=== PATIENT | female | born 1990 | race American Indian/Alaskan Native ===

== ENCOUNTER 2018-04-19 09:42 | Emergency (ER) | payer MEDICAID ==
[2018-04-19] MEDS ORDERED: DELTASONE PO ONE (10:55)
--- NOTE | 2018-04-19 10:55 | Emergency Department Report ---
Minor Respiratory - HPI Chief Complaint: Neuro Symptoms/Deficit Stated Complaint: facial droop Time Seen by Provider: 04/19/18 10:39 Duration: 4 Days Pain Location: Other (face) Severity: moderate Minor Respiratory: Yes Able to Tolerate Fluids, No Rhinorrhea, No Sore Throat, No Ear Pain, No Cough, No Sick Contacts, No Hemoptysis, No Chest Pain, No Shortness of Breath, No Fever ED Review of Systems ROS: Stated complaint: NUERAL SYMPTONS Other details as noted in HPI Comment: All other systems reviewed and negative Constitutional: denies: chills, fever Eyes: denies: eye pain, eye discharge, vision change ENT: denies: ear pain, throat pain Respiratory: denies: cough, orthopnea Cardiovascular: denies: palpitations Endocrine: denies: excessive sweating, intolerance to heat Gastrointestinal: denies: nausea, vomiting Genitourinary: denies: urgency Musculoskeletal: other (face droop on l, no fever. no urti, no lesions, no hx cold sores). denies: back pain, joint swelling, arthralgia Skin: denies: rash, lesions Neurological: denies: headache, weakness Psychiatric: denies: anxiety, depression Hematological/Lymphatic: denies: easy bleeding ED Past Medical Hx - Past Medical History Hx Hypertension: No Hx Congestive Heart Failure: No Hx Diabetes: No Hx Deep Vein Thrombosis: No Hx Renal Disease: No Hx Sickle Cell Disease: No Hx Seizures: No Hx Asthma: No Hx COPD: No Hx HIV: No Additional medical history: MS - Surgical History Past Surgical History?: No - Family History Family history: no significant - Social History Smoking Status: Never Smoker Substance Use Type: None - Medications Home Medications: Home Medications Medication Instructions Recorded Confirmed Last Taken Type Polyvinyl Alcohol [Artificial 15 ml OP Q2H #1 drops 04/19/18 Unknown Rx Tears] predniSONE [Deltasone] 50 mg PO QDAY #10 tab 04/19/18 Unknown Rx Minor Respiratory Exam - Exam General: Vital signs noted. No distress. Alert and acting appropriately. HEENT: Yes Moist Mucous Membranes, No Pharyngeal Erythema, No Pharyngeal Exudates, No Rhinorrhea, No Conjuctival Injection, No Frontal Tenderness, No Maxillary Tenderness Ear: Neither TM Bulge, Neither TM Erythema, Neither EAC Pain, Neither EAC Discharge Neck: Yes Supple, No Adenopathy Lungs: Yes Good Air Exchange, No Wheezes, No Ronchi, No Stridor, No Cough, No Labored Respirations, No Retractions, No Use of Accessory Muscles, No Other Abnormal Lung Sounds Heart: Yes Regular, No Murmur Abdomen: Yes Normal Bowel Sounds, No Tenderness, No Peritoneal Signs Skin: No Rash, No Edema Neurologic: Alert and oriented, patient is ambulatory. Equal hand grasp. Equal pedal pushes EOMs are intact pupils equal round reactive to light Patient is unable to close her left eye and has associated left sided mouth drooping. Patient has a history of multiple sclerosis. This is not her typical presentation. She follows with neurology at [facility]. She's had no fever no recent upper respiratory tract infection, and she does not have a history of herpes. 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 Just today her mother became concerned and thought she should come in to be seen. She did call her neurologist Socorro who told her to come to the ER because they could not work her in before her April appointment. Musculoskeletal: Unremarkable. ED Course Vital Signs 04/19/18 09:46 Temperature 98 F Pulse Rate 87 Respiratory 18 Rate Blood Pressure 129/87 O2 Sat by Pulse 97 Oximetry ED Medical Decision Making - Medical Decision Making No focal neuro deficit equal hand grasps and pedal pushes. No pronator drift. EOMs intact. Pupils equal round react to light. Patient ambulatory. She is able to take by mouth fluids. She is nontoxic and nonfebrile and non-ill- appearing. Patient was discharged home with steroids, artificial tears for her eyes and encouraged to follow up with neuro as soon as she can't be sure that she does not end up having an MS flare. - Differential Diagnosis bells palsy w underlying MS Critical care attestation.: If time is entered above; I have spent that time in minutes in the direct care of this critically ill patient, excluding procedure time. ED Disposition Clinical Impression: Zelaya's palsy, Multiple sclerosis Disposition: DC-01 TO HOME OR SELFCARE Is pt being admited?: No Does the pt Need Aspirin: No Condition: Stable Instructions: Zelaya Palsy (ED) Additional Instructions: FOLLOW UP WITH YOUR NEURO MD FROY- THIS WEEK MEDS ORDERED TODAY HYDRATE WELL ACTIVITY TOLERATED DIET TOLERATED Prescriptions: Polyvinyl Alcohol [Artificial Tears] 15 ml OP Q2H #1 drops predniSONE [Deltasone] 50 mg PO QDAY #10 tab Referrals: PRIMARY CARE, [Primary Care Provider] - 3-5 Days Time of Disposition: 10:54
[2018-04-19 12:05] VITALS: BP 123/81
== END 2018-04-19 11:59 | disposition home or self-care (01) ==
LOC: ED 09:42
DX: G51.0 Bell's palsy (principal); G35 Multiple sclerosis
CPT/HCPCS: 99282; J7512

== ENCOUNTER 2018-08-20 15:02 | Emergency (ER) | payer MEDICAID ==
[2018-08-20 15:08] VITALS: BP 112/77
--- NOTE | 2018-08-20 15:14 | Emergency Department Report ---
Chief Complaint: Back Pain/Injury Stated Complaint: BACK PAIN Time Seen by Provider: 08/20/18 15:11 - HPI History of Present Illness: PAIN L SIDE THAT MOVES AT NIGHT NO N/V/D/FEVER/SOB/CP PT WALKS WITH CANE SHE REPORTS MANY FALLS BUT STATES NO FALL THAT SHE HAS HURT HER BACK DURING ODD AFFECT CIG/ETOH/DRUGS DENIES MS - BOWEN MRI THIS PAST WEEK PMH MS LMP 07/25 RX TEFADERA PSH NONE MSE COMPLETED - Exam Vital Signs: Vital Signs 08/20/18 15:07 Temperature 97.7 F Pulse Rate 96 H Respiratory 18 Rate Blood Pressure 112/77 [Right] O2 Sat by Pulse 98 Oximetry MSE screening note: Focused history and physical exam performed. Due to findings the following was ordered: ED Disposition for MSE Condition: Stable
[2018-08-20 15:44] LABS: HCG Qualitative,Urine Negative (Negative)
[2018-08-20] MEDS ORDERED: TORADOL IM ONE (15:44)
[2018-08-20 15:54] LABS: Bilirubin,Urine NEG (Negative); Blood,Urine SM (Negative); Color,Urine Amber (Yellow); Protein,Urine <15 mg/dL mg/dL (Negative); Urobilinogen,Urine < 2.0 mg/dL (<2.0)
[2018-08-20 15:55] LABS: RBC,Urine < 1.0 /HPF (0.0-6.0); WBC,Urine < 1.0 /HPF (0.0-6.0)
--- NOTE | 2018-08-20 16:05 | Emergency Department Report ---
ED Back Pain/Injury HPI - General Chief Complaint: Back Pain/Injury Stated Complaint: BACK PAIN Time Seen by Provider: 08/20/18 15:11 Source: patient Limitations: No Limitations - History of Present Illness Initial Comments: Patient is a 28-year-old female who has multiple sclerosis who is complaining of some left back pain. Patient states it hurts worse with movement. Present for 2 days. Patient does walk with a cane. Patient denies any dysuria or urinary frequency or abnormal vaginal bleeding. Patient denies nausea vomiting diarrhea at this time. Severity scale (0 -10): 6 Quality: aching Consistency: constant - Related Data Previous Rx's Medication Instructions Recorded Last Taken Type Polyvinyl Alcohol [Artificial 15 ml OP Q2H #1 drops 04/19/18 Unknown Rx Tears] predniSONE [Deltasone] 50 mg PO QDAY #10 tab 04/19/18 Unknown Rx Ibuprofen [Motrin] 800 mg PO Q8HR PRN #20 tablet 08/20/18 Unknown Rx methOCARBAMOL [Robaxin TAB] 500 mg PO Q6H PRN #15 tablet 08/20/18 Unknown Rx traMADol [Ultram] 50 mg PO Q6HR PRN #12 tablet 08/20/18 Unknown Rx Allergies Allergy/AdvReac Type Severity Reaction Status Date / Time No Known Allergies Allergy Verified 04/19/18 09:46 ED Review of Systems ROS: Stated complaint: BACK PAIN Other details as noted in HPI Comment: All other systems reviewed and negative ED Past Medical Hx - Past Medical History MS Family history: no significant family history ED Back Pain Physical Exam - Exam General: Vital signs noted. No distress. Alert and acting appropriately. Back/Abdomen: Yes Perilumbar Tenderness, No Abdominal Tenderness, No Perithoracic Tenderness, No Sacroiliac Tenderness, No Flank Tenderness, No Straight Leg Raise Pain Neuro: Yes Normal Sensation, Yes Normal DTR's, Yes Normal Gait, No Motor Weakness ED Course Vital Signs 08/20/18 15:07 Temperature 97.7 F Pulse Rate 96 H Respiratory 18 Rate Blood Pressure 112/77 [Right] O2 Sat by Pulse 98 Oximetry ED Medical Decision Making - Lab Data Lab Results 08/20/18 Range/Units 15:29 Urine Color Xin (Yellow) Urine Turbidity Clear (Clear) Urine pH 6.0 (5.0-7.0) Ur Specific Napoleon 1.032 H (1.003-1.030) Urine Protein <15 mg/dl (Negative) mg/dL Urine Glucose (UA) 50 (Negative) mg/dL Urine Ketones 20 (Negative) mg/dL Urine Blood Sm (Negative) Urine Nitrite Neg (Negative) Ur Reducing Substances Not Reportable Urine Bilirubin Neg (Negative) Urine Ictotest Not Reportable Urine Urobilinogen < 2.0 (<2.0) mg/dL Ur Leukocyte Esterase Sm (Negative) Urine WBC (Auto) < 1.0 (0.0-6.0) /HPF Urine RBC (Auto) < 1.0 (0.0-6.0) /HPF Urine HCG, Qual Negative (Negative) - Medical Decision Making Patient's urinalysis is within normal limits. Patient likely with some muscular pain secondary to positioning or using her cane. Patient was started on meds for symptomatic relief will be discharged home. Critical care attestation.: If time is entered above; I have spent that time in minutes in the direct care of this critically ill patient, excluding procedure time. ED Disposition Clinical Impression: Back strain Qualifiers: Encounter type: initial encounter Qualified Code(s): S39.012A - Strain of muscle, fascia and tendon of lower back, initial encounter Disposition: DC-01 TO HOME OR SELFCARE Is pt being admited?: No Does the pt Need Aspirin: No Condition: Stable Instructions: Muscle Strain (ED) Referrals: BARBER RUIZ MD [Primary Care Provider] - 3-5 Days Time of Disposition: 16:05
== END 2018-08-20 16:13 | disposition home or self-care (01) ==
LOC: ED 15:02
DX: S39.012A Strain of muscle, fascia and tendon of lower back, initial encounter (principal); G35 Multiple sclerosis; X58.XXXA Exposure to other specified factors, initial encounter; Y93.89 Activity, other specified; Y92.89 Other specified places as the place of occurrence of the external cause; Y99.8 Other external cause status
CPT/HCPCS: 81001; 81025; 96372; 99283; J1885

== ENCOUNTER 2020-08-16 11:47 | Emergency (ER) | payer MEDICAID ==
[2020-08-16 12:29] VITALS: BP 130/77
[2020-08-16] MEDS ORDERED: IBUPROFEN 800 MG TAB PO ONE ×2 (12:33→15:02)
--- NOTE | 2020-08-16 12:37 | Emergency Department Report ---
ED General Adult HPI - General Chief complaint: Fall Stated complaint: BUTT BONE/FALL PUI?: No Time Seen by Provider: 08/16/20 12:32 Source: patient Mode of arrival: Ambulatory Limitations: No Limitations - History of Present Illness Initial comments: This is a 30-year-old female with no prior medical history presents the ED com plaining of left buttock pain and right knee pain status post fall at the grocery store earlier today prior to arrival. Patient states left buttock is throbbing in nature nonradiating elsewhere. Patient states that right knee pain is throbbing and pain is localized to the anterior knee. Patient states she cannot recall how she fell but fell on her buttocks from a ground-level. She denies loss of consciousness after incident. She days ambulatory with some pain. She denies chest pain, shortness of breath, fever, chills, headache blurry vision. - Related Data Previous Rx's Medication Instructions Recorded Last Taken Type Polyvinyl Alcohol [Artificial 15 ml OP Q2H #1 drops 04/19/18 Unknown Rx Tears] predniSONE [Deltasone] 50 mg PO QDAY #10 tab 04/19/18 Unknown Rx traMADoL [Ultram] 50 mg PO Q6HR PRN #12 tablet 08/20/18 Unknown Rx Ibuprofen [Motrin 800 MG tab] 800 mg PO Q8HR PRN #30 tablet 08/16/20 Unknown Rx methOCARBAMOL [Robaxin TAB] 500 mg PO Q6H PRN #20 tablet 08/16/20 Unknown Rx Allergies Allergy/AdvReac Type Severity Reaction Status Date / Time No Known Allergies Allergy Verified 04/19/18 09:46 ED Review of Systems ROS: Stated complaint: BUTT BONE/FALL Other details as noted in HPI Comment: All other systems reviewed and negative ED Past Medical Hx - Past Medical History Previous Medical History?: Yes Hx Hypertension: No Hx Congestive Heart Failure: No Hx Diabetes: No Hx Deep Vein Thrombosis: No Hx Renal Disease: No Hx Sickle Cell Disease: No Hx Seizures: No Hx Asthma: No Hx COPD: No Hx HIV: No Additional medical history: MS - Social History Smoking Status: Never Smoker Substance Use Type: None - Medications Home Medications: Home Medications Medication Instructions Recorded Confirmed Last Taken Type Polyvinyl Alcohol [Artificial 15 ml OP Q2H #1 drops 04/19/18 Unknown Rx Tears] predniSONE [Deltasone] 50 mg PO QDAY #10 tab 04/19/18 Unknown Rx traMADoL [Ultram] 50 mg PO Q6HR PRN #12 tablet 08/20/18 Unknown Rx Ibuprofen [Motrin 800 MG tab] 800 mg PO Q8HR PRN #30 tablet 08/16/20 Unknown Rx methOCARBAMOL [Robaxin TAB] 500 mg PO Q6H PRN #20 tablet 08/16/20 Unknown Rx ED Physical Exam - General Limitations: No Limitations General appearance: alert, in no apparent distress - Head Head exam: Present: atraumatic, normocephalic - Eye Eye exam: Present: normal appearance - ENT ENT exam: Present: mucous membranes moist - Neck Neck exam: Present: normal inspection - Respiratory Respiratory exam: Present: normal lung sounds bilaterally. Absent: respiratory distress - Cardiovascular Cardiovascular Exam: Present: regular rate, normal rhythm. Absent: systolic murmur, diastolic murmur, rubs, gallop - GI/Abdominal GI/Abdominal exam: Present: soft, normal bowel sounds - Extremities Exam Extremities exam: Present: normal inspection, full ROM, tenderness (To palpation of the anterior right knee), normal capillary refill. Absent: joint swelling, calf tenderness - Back Exam Back exam: Present: normal inspection - Neurological Exam Neurological exam: Present: alert, oriented X3, CN II-XII intact, abnormal gait (Limping gait) - Psychiatric Psychiatric exam: Present: normal affect, normal mood - Skin Skin exam: Present: warm, dry, intact, normal color. Absent: rash ED Course Vital Signs 08/16/20 12:28 Temperature 98.6 F Pulse Rate 87 Respiratory 18 Rate Blood Pressure 130/77 O2 Sat by Pulse 99 Oximetry ED Medical Decision Making - Radiology Data Radiology results: report reviewed, image reviewed cc: EMELYN GILL Fluoro Time In Minutes: RIGHT KNEE 3 VIEWS INDICATION: am. COMPARISON: None. IMPRESSION: A moderate joint effusion is suspected on the lateral image. Normal bone mineralization. No acute osseous findings or joint pathology is appreciated. If internal arrangement is suspected, MRI could be obtained. Signer Name: Mahad Quevedo Jr, MD Signed: 08/16/2020 1:36 PM Workstation Name: [id number] Transcribed By: TTR Dictated By: MAHAD QUEVEDO JR, MD Electronically Authenticated By: MAHAD QUEVEDO JR, MD Signed Date/Time: 08/16/20 3599 - Medical Decision Making 30-year-old female presents to ED with myalgia and knee pain status post ground-level fall ED course: Patient received Motrin in ED. X-rays ordered, see report above Vital signs are normal patient is in no acute distress Discussed with patient follow-up with primary care physician. Discussed the patient and take medications as prescribed. Patient has no neurological deficit. Patient is alert and oriented 3 and understands all instructions given. Critical care attestation.: If time is entered above; I have spent that time in minutes in the direct care of this critically ill patient, excluding procedure time. ED Disposition Clinical Impression: Fall, Myalgia, Knee pain Disposition: TO HOME OR SELFCARE Is pt being admited?: No Does the pt Need Aspirin: No Condition: Stable Instructions: Joint Pain, Musculoskeletal Pain, How to Use Cold Therapy, [id number] Additional Instructions: Make sure to follow up with the primary care physician as discussed. Take all your medications as you've been prescribed. If you have any worsening symptoms or develop new symptoms please return to ED immediately. Prescriptions: Ibuprofen [Motrin 800 MG tab] 800 mg PO Q8HR PRN #30 tablet PRN Reason: Pain methOCARBAMOL [Robaxin TAB] 500 mg PO Q6H PRN #20 tablet PRN Reason: Pain Referrals: PRIMARY CARE, [Primary Care Provider] - 3-5 Days [facility] [Outside] - 3-5 Days [facility] [Outside] - 3-5 Days Forms: Work/School Release Form(ED) Time of Disposition: 14:35
--- NOTE | 2020-08-16 13:41 | XRay Report ---
RIGHT KNEE 3 VIEWS INDICATION: am. COMPARISON: None. IMPRESSION: A moderate joint effusion is suspected on the lateral image. Normal bone mineralization . No acute osseous findings or joint pathology is appreciated. If internal arrangement is suspected, MRI could be obtained. Signer Name: Mahad Estrella Jr, MD Signed: 08/16/2020 1:36 PM Workstation Name: [id number]
== END 2020-08-16 15:18 | disposition home or self-care (01) ==
LOC: ED 11:47
DX: M25.561 Pain in right knee (principal); M79.10 Myalgia, unspecified site; Z79.1 Long term (current) use of non-steroidal anti-inflammatories (NSAID); Z79.899 Other long term (current) drug therapy; W18.30XA Fall on same level, unspecified, initial encounter; Y93.89 Activity, other specified; Y92.89 Other specified places as the place of occurrence of the external cause; Y99.8 Other external cause status

== ENCOUNTER 2021-01-21 16:19 | Emergency (ER) | payer MEDICAID ==
[2021-01-21 19:00] VITALS: BP 137/85
[2021-01-21] MEDS ORDERED: ACETAMINOPHEN 500 MG TAB PO ONE (20:28)
[2021-01-21] MEDS ORDERED: IBUPROFEN 600 MG TAB PO ONE (20:29)
--- NOTE | 2021-01-21 21:29 | Emergency Department Report ---
ED Extremity Problem HPI - General Chief complaint: Extremity Problem,Nontraumatic Stated complaint: RT LEG PAIN Time Seen by Provider: 01/21/21 19:04 Source: patient Mode of arrival: Ambulatory Limitations: No Limitations - History of Present Illness Initial comments: Patient is a 30-year-old -[place] female with a history of multiple sclerosis who presents to the ED with complaint of acute onset persistent nontraumatic right lower leg pain that started from her feet and radiates to the right lower leg and thighs for the last 2 weeks. Patient states the pain is worse with ambulation or weightbearing. Patient denies fall, traumatic injury, numbness and tingling or weakness of lower extremities bilaterally, low back pain, chest pain, shortness of breath, fever, chills, nausea, vomiting or heavy lifting. MD Complaint: extremity pain (right leg pain) -: Sudden, week(s) (2) Location: right, lower extremity (Right lower leg and thigh pain) History of Same: No -: Yes myalgia, No arthralgia, No fever, No associated dyspnea, No associated chest pain Severity scale (0 -10): 3 Quality: aching, dull Consistency: constant Improves with: nothing Worsens with: weight bearing, walking, exertion, palpation Associated Symptoms: denies other symptoms. denies: chest pain, shortness of breath, fever, myalgias, arthralgias, rash - Related Data Previous Rx's Medication Instructions Recorded Last Taken Type Polyvinyl Alcohol [Artificial 15 ml OP Q2H #1 drops 04/19/18 Unknown Rx Tears] predniSONE [Deltasone] 50 mg PO QDAY #10 tab 04/19/18 Unknown Rx traMADoL [Ultram] 50 mg PO Q6HR PRN #12 tablet 08/20/18 Unknown Rx methOCARBAMOL [Robaxin TAB] 500 mg PO Q6H PRN #20 tablet 08/16/20 Unknown Rx Ibuprofen [Motrin 800 MG tab] 800 mg PO Q8HR PRN #30 tablet 01/21/21 Unknown Rx Allergies Allergy/AdvReac Type Severity Reaction Status Date / Time No Known Allergies Allergy Verified 04/19/18 09:46 ED Review of Systems ROS: Stated complaint: RT LEG PAIN Other details as noted in HPI Constitutional: denies: chills, fever Eyes: denies: eye pain, eye discharge, vision change ENT: denies: ear pain, throat pain Respiratory: denies: cough, shortness of breath, wheezing Cardiovascular: denies: chest pain, palpitations Endocrine: no symptoms reported Gastrointestinal: denies: abdominal pain, nausea, diarrhea Genitourinary: denies: urgency, dysuria, discharge Musculoskeletal: arthralgia (Diffuse right lower leg pain). denies: back pain, joint swelling Skin: denies: rash, lesions Neurological: denies: headache, weakness, paresthesias Psychiatric: denies: anxiety, depression Hematological/Lymphatic: denies: easy bleeding, easy bruising ED Past Medical Hx - Past Medical History Previous Medical History?: Yes Hx Hypertension: No Hx Congestive Heart Failure: No Hx Diabetes: No Hx Deep Vein Thrombosis: No Hx Renal Disease: No Hx Sickle Cell Disease: No Hx Seizures: No Hx Asthma: No Hx COPD: No Hx HIV: No Additional medical history: MS - Surgical History Past Surgical History?: No - Social History Smoking Status: Never Smoker Substance Use Type: None - Medications Home Medications: Home Medications Medication Instructions Recorded Confirmed Last Taken Type Polyvinyl Alcohol [Artificial 15 ml OP Q2H #1 drops 04/19/18 Unknown Rx Tears] predniSONE [Deltasone] 50 mg PO QDAY #10 tab 04/19/18 Unknown Rx traMADoL [Ultram] 50 mg PO Q6HR PRN #12 tablet 08/20/18 Unknown Rx methOCARBAMOL [Robaxin TAB] 500 mg PO Q6H PRN #20 tablet 08/16/20 Unknown Rx Ibuprofen [Motrin 800 MG tab] 800 mg PO Q8HR PRN #30 tablet 01/21/21 Unknown Rx ED Physical Exam - General Limitations: No Limitations General appearance: alert, in no apparent distress - Head Head exam: Present: atraumatic, normocephalic, normal inspection - Eye Eye exam: Present: normal appearance, PERRL, EOMI Pupils: Present: normal accommodation - ENT ENT exam: Present: normal exam, normal orophraynx, mucous membranes moist, TM's normal bilaterally, normal external ear exam - Neck Neck exam: Present: normal inspection, full ROM - Respiratory Respiratory exam: Present: normal lung sounds bilaterally. Absent: respiratory distress, wheezes, rales, rhonchi, chest wall tenderness, accessory muscle use, decreased breath sounds - Cardiovascular Cardiovascular Exam: Present: regular rate, normal rhythm, normal heart sounds. Absent: systolic murmur, diastolic murmur, rubs, gallop - GI/Abdominal GI/Abdominal exam: Present: soft, normal bowel sounds. Absent: tenderness, guarding, rebound, hyperactive bowel sounds, hypoactive bowel sounds, organomegaly - Extremities Exam Extremities exam: Present: normal inspection, full ROM, tenderness (Palpable right lower leg and right thigh tenderness), normal capillary refill - Back Exam Back exam: Present: normal inspection, full ROM. Absent: tenderness, CVA tenderness (R), CVA tenderness (L), muscle spasm, paraspinal tenderness, vertebral tenderness - Neurological Exam Neurological exam: Present: alert, oriented X3, CN II-XII intact, normal gait, reflexes normal - Psychiatric Psychiatric exam: Present: normal affect, normal mood - Skin Skin exam: Present: warm, dry, intact, normal color. Absent: rash ED Course Vital Signs 01/21/21 01/21/21 18:59 21:41 Temperature 99.1 F Pulse Rate 88 71 Respiratory 18 16 Rate Blood Pressure 137/85 O2 Sat by Pulse 98 99 Oximetry ED Medical Decision Making - Radiology Data Radiology results: report reviewed, image reviewed [facility] [address] [place] [address] Vascular Lab Report Signed Patient: GI ANGLIN MR#: [id number] : 1990 Acct:[id number] Age/Sex: 30 / F ADM Date: 01/21/21 Loc: ED Attending Dr: Ordering Physician: EMELYN CASTRO Date of Service: 01/21/21 Procedure(s): VL venous duplex LE BILAT Accession Number(s): [id number] cc: EMELYN CASTRO DUPLEX DOPPLER LOWER EXTREMITY VEINS, BILATERAL INDICATION / CLINICAL INFORMATION: Bilateral Leg pain. TECHNIQUE: Duplex doppler imaging was performed through the veins of both lower extremities using venous compression and other maneuvers. COMPARISON: None available. FINDINGS: RIGHT COMMON FEMORAL VEIN: Negative. RIGHT FEMORAL VEIN: Negative. RIGHT POPLITEAL VEIN: Negative. RIGHT CALF VEINS: Negative. LEFT COMMON FEMORAL VEIN: Negative. LEFT FEMORAL VEIN: Negative. LEFT POPLITEAL VEIN: Negative. LEFT CALF VEINS: Negative. ADDITIONAL FINDINGS: None. IMPRESSION: 1. No sonographic evidence for DVT in either lower extremity. Signer Name: Heath Johnson MD Signed: 01/21/2021 9:26 PM Workstation Name: [id number] Transcribed By: DB Dictated By: HEATH JOHNSON MD Electronically Authenticated By: HEATH JOHNSON MD Signed Date/Time: 01/21/212125 DD/ 23 TD/TT: Print - Medical Decision Making This is a 30-year-old -[place] female with a history of multiple sclerosis who presents to the ED with complaint of acute onset persistent nontraumatic right lower leg pain that started from her feet and radiates to the right lower leg and thighs for the last 2 weeks. Patient states the pain is worse with ambulation or weightbearing. In the ED, patient is alert and oriented x3 and is not in any distress. Patient was treated for pain in the ED. Bilateral lower extremity Doppler ultrasound showed no sonographic evidence of DVT. Based on the history and physical exam findings and the unremarkable Doppler ultrasound of the lower extremities, patient symptoms are likely musculoskeletal muscle strain or muscle spasm. Patient was therefore discharged home on pain medications and advised to follow-up with her primary care physician in 5 to 7 days for reevaluation or return to the ED immediately if symptoms get worse. - Differential Diagnosis DVT; muscle strain; muscle spasm; Critical care attestation.: If time is entered above; I have spent that time in minutes in the direct care of this critically ill patient, excluding procedure time. ED Disposition Clinical Impression: Pain of right lower extremity Muscle strain of right lower extremity Qualifiers: Encounter type: initial encounter Qualified Code(s): S86.911A - Strain of unspecified muscle(s) and tendon(s) at lower leg level, right leg, initial encounter Muscle spasms of lower extremity Qualifiers: Laterality: right Qualified Code(s): M62.838 - Other muscle spasm Disposition: DC-01 TO HOME OR SELFCARE Is pt being admited?: No Does the pt Need Aspirin: No Condition: Stable Instructions: Muscle Cramps and Spasms, [id number], Muscle Strain, [id number] Additional Instructions: The Doppler ultrasound of the lower extremities bilaterally showed no sonographic evidence of DVT. Therefore your symptoms are likely due to muscle spasm or muscle strain of the right leg. Therefore take pain medication as needed with food, drink plenty of fluids and follow-up with your primary care physician in 5 to 7 days for reevaluation. Return to the ED immediately if symptoms get worse. Prescriptions: Ibuprofen [Motrin 800 MG tab] 800 mg PO Q8HR PRN #30 tablet PRN Reason: Pain Referrals: ANDRE BATISTA MD [Staff Physician] - 3-5 Days Time of Disposition: 21:31 Print Language: LAO
== END 2021-01-21 21:41 | disposition home or self-care (01) ==
LOC: ED 16:19
DX: S86.911A Strain of unspecified muscle(s) and tendon(s) at lower leg level, right leg, initial encounter (principal); M62.838 Other muscle spasm; X58.XXXA Exposure to other specified factors, initial encounter; Y93.89 Activity, other specified; Y92.89 Other specified places as the place of occurrence of the external cause; Y99.8 Other external cause status
CPT/HCPCS: 93970; 99283